=== PATIENT | male | born 1945 | race Caucasian/White ===

== ENCOUNTER 2019-02-01 18:41 | Emergency (ER) | payer MEDICARE, OTHER, BC ==
[2019-02-01] MEDS: FAMOTIDINE 20 MG INJ IV (20:09)
[2019-02-01] MEDS: METHYLPREDNISOLONE 125 MG INJ IV (20:09)
[2019-02-01] MEDS: DIPHENHYDRAMINE 50 MG INJ IV (20:09)
== END 2019-02-01 21:24 | disposition home or self-care (01) ==
LOC: E/R 18:41
DX: T78.3XXA Angioneurotic edema, initial encounter (principal)
CPT/HCPCS: 96374; 96375; 99284-25